=== PATIENT | male | born 1980 | race Caucasian/White ===

== ENCOUNTER 2019-01-03 10:20 | Emergency (ER) | payer SELFPAY ==
[2019-01-03 10:27] VITALS: TEMP 99.2
[2019-01-03] MEDS ORDERED: NEOMYCIN-BACITRACIN-POLYMYXIN 0.9 GM UD TOP ONE (11:15)
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
[2019-01-03 11:43] VITALS: BP 146/84; O2SAT 98
== END 2019-01-03 11:30 | disposition home or self-care (01) ==
LOC: ER 10:20
DX: S81.812A Laceration without foreign body, left lower leg, initial encounter (principal); Z87.891 Personal history of nicotine dependence; V28.0XXA Motorcycle driver injured in noncollision transport accident in nontraffic accident, initial encounter; Y92.89 Other specified places as the place of occurrence of the external cause